=== PATIENT | male | born 1990 | race Caucasian/White ===

== ENCOUNTER 2018-06-13 13:14 | Emergency (ER) | payer OTHER ==
--- NOTE | 2018-06-13 13:57 | EDM.PDOC ---
ED HPI GENERAL MEDICAL PROBLEM - General Chief Complaint: Lower Extremity Injury/Pain Stated Complaint: RT FOOT Time Seen by Provider: 06/13/18 13:45 Source of Information: Reports: Patient History Limitations: Reports: No Limitations - History of Present Illness INITIAL COMMENTS - FREE TEXT/NARRATIVE: This 27 yo male patient reports to the ED with right lateral foot pain. The patient reports his pain started 1 week ago after he did a 12 mile ruck march ( carrying 42 pounds of weight in his pack). The patient reports he has noticed increased pain and swelling at the end of the day while at [employer]. The patient reports his guard drill ends tomorrow, so came to get his foot checked out today. Duration: Week(s): (1), Constant, Getting Worse Location: Reports: Lower Extremity, Right Quality: Reports: Ache, Dull Severity: Moderate Improves with: Reports: None Worsens with: Reports: None Context: Reports: Other Associated Symptoms: Reports: No Other Symptoms Right Feet Pain Score (Numeric/FACES): 6 - Related Data Allergies Allergy/AdvReac Type Severity Reaction Status Date / Time No Known Allergies Allergy Verified 06/13/18 13:28 Home Meds: Home Meds . [No Known Home Meds] 06/13/18 [History] Past Medical History - Past Surgical History HEENT Surgical History: Reports: Adenoidectomy, Oral Surgery, Tonsillectomy Musculoskeletal Surgical History: Reports: Other (See Below) Other Musculoskeletal Surgeries/Procedures:: surgery on finger Social & Family History - Tobacco Use Smoking Status *Q: Never Smoker - Caffeine Use Caffeine Use: Reports: Energy Drinks - Recreational Drug Use Recreational Drug Use: No Review of Systems - Review of Systems Review Of Systems: ROS reveals no pertinent complaints other than HPI. ED EXAM, GENERAL - Physical Exam Exam: See Below Exam Limited By: No Limitations General Appearance: Alert, WD/WN, Mild Distress Eye Exam: Bilateral Eye: EOMI, Normal Inspection, PERRL Ears: Normal External Exam, Normal Canal, Hearing Grossly Normal, Normal TMs Nose: Normal Inspection, Normal Mucosa, No Blood Throat/Mouth: Normal Inspection, Normal Lips, Normal Teeth, Normal Gums, Normal Oropharynx, Normal Voice, No Airway Compromise Head: Atraumatic, Normocephalic Neck: Normal Inspection, Supple, Non-Tender, Full Range of Motion Respiratory/Chest: No Respiratory Distress, Lungs Clear, Normal Breath Sounds, No Accessory Muscle Use, Chest Non-Tender Cardiovascular: Normal Peripheral Pulses, Regular Rate, Rhythm, No Edema, No Gallop, No JVD, No Murmur, No Rub GI/Abdominal: Normal Bowel Sounds, Soft, Non-Tender, No Organomegaly, No Distention, No Abnormal Bruit, No Mass (Male) Exam: Deferred Rectal (Males) Exam: Deferred Back Exam: Normal Inspection, Full Range of Motion, NT Extremities: Leg Pain (right lateral foot pain) Neurological: Alert, Oriented, CN II-XII Intact, Normal Cognition, Normal Gait, Normal Reflexes, No Motor/Sensory Deficits Psychiatric: Normal Affect, Normal Mood Skin Exam: Warm, Dry, Intact, Normal Color, No Rash Lymphatic: No Adenopathy Course - Vital Signs Last Recorded V/S: Last Vital Signs Temp 36.6 C 06/13/18 13:19 Pulse 88 06/13/18 13:19 Resp 15 06/13/18 13:19 BP 150/70 H 06/13/18 13:19 Pulse Ox 100 06/13/18 13:19 - Orders/Labs/Meds Orders: Active Orders 24 hr Category Date Time Status Foot Comp Min 3V Rt [CR] Urgent Exams 06/13/18 13:49 Ordered Departure - Departure Time of Disposition: 14:57 Disposition: Home, Self-Care 01 Condition: Fair Clinical Impression: Strain of right foot Qualifiers: Encounter type: initial encounter Qualified Code(s): S96.911A - Strain of unspecified muscle and tendon at ankle and foot level, right foot, initial encounter - Discharge Information *PRESCRIPTION DRUG MONITORING PROGRAM REVIEWED*: Not Applicable *COPY OF PRESCRIPTION DRUG MONITORING REPORT IN PATIENT TEVIN: Not Applicable Instructions: Repetitive Strain Injuries, Foot Sprain Forms: ED Department Discharge Care Plan Goals: The patient was advised of the examination and x-ray results during the visit. The patient was encouraged to rest, ice and elevate the extremity. If the patient has any additional symptoms or concerns, the patient should follow-up with his primary care facility or return to the emergency department. - My Orders Last 24 Hours: My Active Orders 06/13/18 13:49 Foot Comp Min 3V Rt [CR] Urgent - Assessment/Plan Last 24 Hours: My Active Orders 06/13/18 13:49 Foot Comp Min 3V Rt [CR] Urgent
== END 2018-06-13 15:10 | disposition home or self-care (01) ==
LOC: DL.ED 13:14
DX: S96.911A Strain of unspecified muscle and tendon at ankle and foot level, right foot, initial encounter (principal); X58.XXXA Exposure to other specified factors, initial encounter
CPT/HCPCS: 73630-RT; 99283